=== PATIENT | female | born 1995 | race Caucasian/White ===

== ENCOUNTER 2017-07-18 10:27 | Emergency (ER) | payer OTHER ==
[2017-07-18] MEDS ORDERED: Sodium Chloride 0.9% 10 ML Syringe FLUSH PRN (10:38)
[2017-07-18] MEDS ORDERED: Sodium Chloride 0.9% 2.5 ML Syringe FLUSH PRN (10:38)
--- NOTE | 2017-07-18 10:54 | EDM.PDOC ---
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 It became heavy today with cramping. Review of systems: As per history of present illness and below otherwise all systems reviewed and negative. Past medical history: As per history of present illness and as reviewed below otherwise noncontributory. Surgical history: As per history of present illness and as reviewed below otherwise noncontributory. Social history: No reported history of drug or alcohol abuse. Family history: As per history of present illness and as reviewed below otherwise noncontributory. Physical exam: General: Well developed, well nourished in NAD HEENT: Atraumatic, normocephalic, pupils reactive, negative for conjunctival pallor or scleral icterus, mucous membranes moist, throat clear, neck supple, nontender, trachea midline. Lungs: Clear to auscultation, breath sounds equal bilaterally, chest nontender. Heart: S1S2, regular, negative for clicks, rubs, or JVD. Abdomen: Soft, nondistended, nontender. Negative for masses or hepatosplenomegaly. Negative for costovertebral tenderness. Pelvis: Large amount of blood and clots in the vaginal vault there is no tissue present osseous closed Genitourinary: Deferred. Rectal: Deferred. Extremities: Atraumatic, negative for cords or calf pain. Neurovascular unremarkable. Neuro: Awake, alert, oriented. Cranial nerves II through XII unremarkable. Cerebellum unremarkable. Motor and sensory unremarkable throughout. Exam nonfocal. Diagnostics: []Ultrasound shows blood clot there is no fetus noted, UA positive for white cells, epithelial cells negative for nitrites and leukocytes, Rh- Therapeutics: []IV fluids morphine and Zofran given for pain, rhogam given Impression: []Spontaneous Plan: []Follow-up PATTERN FILER for urine culture results, increase fluids return if symptoms worsen or change Tylenol Motrin and warm packs Definitive disposition and diagnosis as appropriate pending reevaluation and review of above. vaginal cramping Pain Score (Numeric/FACES): 3 - Related Data Allergies Allergy/AdvReac Type Severity Reaction Status Date / Time No Known Allergies Allergy Verified 07/18/17 12:03 Home Meds: Home Meds . [No Known Home Meds] 07/18/17 [History] ED ROS GENERAL - Review of Systems Review Of Systems: See Below (See history of present illness) ED EXAM - Physical Exam Exam: See Below (See history of present illness) Course - Vital Signs Last Recorded V/S: Last Vital Signs Temp 97.5 F 07/18/17 11:05 Pulse 78 07/18/17 12:15 Resp 18 07/18/17 12:15 BP 102/61 07/18/17 12:15 Pulse Ox 99 07/18/17 12:15 - Orders/Labs/Meds Orders: Active Orders 24 hr Category Date Time Status RH IMMUNE GLOBULIN [BBK] Stat Lab 07/18/17 10:57 Results RHIG WORKUP, [BBK] Stat Lab 07/18/17 10:57 Results Sodium Chloride 0.9% [Normal Saline] 1,000 ml Med 07/18/17 12:02 Active IV STAT Sodium Chloride 0.9% [Saline Flush] Med 07/18/17 10:38 Active 10 ml FLUSH ASDIRECTED PRN Sodium Chloride 0.9% [Saline Flush] Med 07/18/17 10:38 Active 2.5 ml FLUSH ASDIRECTED PRN Saline Lock Insert [OM.PC] Stat Oth 07/18/17 10:37 Ordered Medication Orders Sodium Chloride (Normal Saline) 1,000 mls @ 999 mls/hr IV STAT ONE Stop: 07/18/17 13:02 Last Admin: 07/18/17 12:03 Dose: 999 mls/hr Sodium Chloride (Saline Flush) 10 ml FLUSH ASDIRECTED PRN PRN Reason: Keep Vein Open Last Admin: 07/18/17 12:16 Dose: 10 ml Sodium Chloride (Saline Flush) 2.5 ml FLUSH ASDIRECTED PRN PRN Reason: Keep Vein Open Last Admin: 07/18/17 12:16 Dose: 2.5 ml Labs: Laboratory Tests 07/18/17 07/18/17 07/18/17 Range/Units 10:57 10:57 10:57 WBC 11.58 H (4.0-11.0) K/uL RBC 4.57 (4.30-5.90) M/uL Hgb 14.0 (12.0-16.0) g/dL Hct 40.4 (36.0-46.0) % MCV 88.4 (80.0-98.0) fL MCH 30.6 (27.0-32.0) pg MCHC 34.7 (31.0-37.0) g/dL RDW Std Deviation 43.5 (28.0-62.0) fl RDW Coeff of Janice 14 (11.0-15.0) % Plt Count 243 (150-400) K/uL MPV 10.10 (7.40-12.00) fL Neut % (Auto) 83.0 H (48.0-80.0) % Lymph % (Auto) 12.4 L (16.0-40.0) % Fergus % (Auto) 4.2 (0.0-15.0) % Eos % (Auto) 0.3 (0.0-7.0) % Baso % (Auto) 0.1 (0.0-1.5) % Neut # (Auto) 9.6 H (1.4-5.7) K/uL Lymph # (Auto) 1.4 (0.6-2.4) K/uL Fergus # (Auto) 0.5 (0.0-0.8) K/uL Eos # (Auto) 0.0 (0.0-0.7) K/uL Baso # (Auto) 0.0 (0.0-0.1) K/uL Nucleated RBC % 0.0 /100WBC Nucleated RBCs # 0 K/uL HCG, Quant 2829.4 mIU/mL Urine Color Urine Appearance Urine pH (5.0-8.0) Ur Specific Kintyre (1.001-1.035) Urine Protein (NEGATIVE) mg/dL Urine Glucose (UA) (NEGATIVE) mg/dL Urine Ketones (NEGATIVE) mg/dL Urine Occult Blood (NEGATIVE) Urine Nitrite (NEGATIVE) Urine Bilirubin (NEGATIVE) Urine Urobilinogen (<2.0) EU/dL Ur Leukocyte Esterase (NEGATIVE) Urine RBC (0-2/HPF) Urine WBC (0-5/HPF) Ur Epithelial Cells (NONE-FEW) Urine Bacteria (NEGATIVE) Urine Mucus (NONE-MOD) Urine Opiates Screen (NEGATIVE) Ur Oxycodone Screen (NEGATIVE) Urine Methadone Screen (NEGATIVE) Ur Barbiturates Screen (NEGATIVE) Ur Phencyclidine Scrn (NEGATIVE) Ur Amphetamine Screen (NEGATIVE) U Methamphetamines Scrn (NEGATIVE) U Benzodiazepines Scrn (NEGATIVE) U Cocaine Metab Screen (NEGATIVE) U Marijuana (THC) Screen (NEGATIVE) Blood Type O NEGATIVE Antibody Screen NEGATIVE Rhogam Indicated YES 07/18/17 07/18/17 Range/Units 11:59 11:59 WBC (4.0-11.0) K/uL RBC (4.30-5.90) M/uL Hgb (12.0-16.0) g/dL Hct (36.0-46.0) % MCV (80.0-98.0) fL MCH (27.0-32.0) pg MCHC (31.0-37.0) g/dL RDW Std Deviation (28.0-62.0) fl RDW Coeff of Janice (11.0-15.0) % Plt Count (150-400) K/uL MPV (7.40-12.00) fL Neut % (Auto) (48.0-80.0) % Lymph % (Auto) (16.0-40.0) % Fergus % (Auto) (0.0-15.0) % Eos % (Auto) (0.0-7.0) % Baso % (Auto) (0.0-1.5) % Neut # (Auto) (1.4-5.7) K/uL Lymph # (Auto) (0.6-2.4) K/uL Fergus # (Auto) (0.0-0.8) K/uL Eos # (Auto) (0.0-0.7) K/uL Baso # (Auto) (0.0-0.1) K/uL Nucleated RBC % /100WBC Nucleated RBCs # K/uL HCG, Quant mIU/mL Urine Color YELLOW Urine Appearance CLEAR Urine pH 6.0 (5.0-8.0) Ur Specific Kin[place] >= 1.030 (1.001-1.035) Urine Protein 30 (NEGATIVE) mg/dL Urine Glucose (UA) NEGATIVE (NEGATIVE) mg/dL Urine Ketones TRACE H (NEGATIVE) mg/dL Urine Occult Blood SMALL H (NEGATIVE) Urine Nitrite NEGATIVE (NEGATIVE) Urine Bilirubin SMALL H (NEGATIVE) Urine Urobilinogen 0.2 (<2.0) EU/dL Ur Leukocyte Esterase NEGATIVE (NEGATIVE) Urine RBC 0-2 (0-2/HPF) Urine WBC 25-30 (0-5/HPF) Ur Epithelial Cells MODERATE (NONE-FEW) Urine Bacteria 1+ H (NEGATIVE) Urine Mucus HEAVY (NONE-MOD) Urine Opiates Screen NEGATIVE (NEGATIVE) Ur Oxycodone Screen NEGATIVE (NEGATIVE) Urine Methadone Screen NEGATIVE (NEGATIVE) Ur Barbiturates Screen NEGATIVE (NEGATIVE) Ur Phencyclidine Scrn NEGATIVE (NEGATIVE) Ur Amphetamine Screen NEGATIVE (NEGATIVE) U Methamphetamines Scrn NEGATIVE (NEGATIVE) U Benzodiazepines Scrn NEGATIVE (NEGATIVE) U Cocaine Metab Screen NEGATIVE (NEGATIVE) U Marijuana (THC) Screen NEGATIVE (NEGATIVE) Blood Type Antibody Screen Rhogam Indicated Meds: Medications Generic Name Dose Route Start Last Admin Trade Name Freq PRN Reason Stop Dose Admin Sodium Chloride 1,000 mls @ 999 mls/hr 07/18/17 12:02 07/18/17 12:03 Normal Saline IV 07/18/17 13:02 999 mls/hr STAT ONE Administration Sodium Chloride 10 ml 07/18/17 10:38 07/18/17 12:16 Saline Flush FLUSH 10 ml ASDIRECTED PRN Administration Keep Vein Open Sodium Chloride 2.5 ml 07/18/17 10:38 07/18/17 12:16 Saline Flush FLUSH 2.5 ml ASDIRECTED PRN Administration Keep Vein Open Discontinued Medications Generic Name Dose Route Start Last Admin Trade Name Freq PRN Reason Stop Dose Admin Morphine Sulfate 2 mg 07/18/17 11:58 07/18/17 12:16 Morphine IVPUSH 07/18/17 11:59 2 mg ONETIME ONE Administration Ondansetron HCl 4 mg 07/18/17 11:58 07/18/17 12:16 Zofran IVPUSH 07/18/17 11:59 4 mg ONETIME ONE Administration Departure - Departure Time of Disposition: 12:47 Disposition: Home, Self-Care 01 Condition: Good Clinical Impression: Spontaneous - Discharge Information Referrals: PCP,None [Primary Care Provider] - Benedicto Bettencourt MD [Physician] - (Call for next available appointment) Forms: ED Department Discharge Additional Instructions: The following information is given to patients seen in the emergency department who are being discharged to home. This information is to outline your options for follow-up care. We provide all patients seen in our emergency department with a follow-up referral. The need for follow-up, as well as the timing and circumstances, are variable depending upon the specifics of your emergency department visit. If you don't have a primary care physician on staff, we will provide you with a referral. We always advise you to contact your personal physician following an emergency department visit to inform them of the circumstance of the visit and for follow-up with them and/or the need for any referrals to a consulting specialist. The emergency department will also refer you to a specialist when appropriate. This referral assures that you have the opportunity for follow-up care with a specialist. All of these measure are taken in an effort to provide you with optimal care, which includes your follow-up. Under all circumstances we always encourage you to contact your private physician who remains a resource for coordinating your care. When calling for follow-up care, please make the office aware that this follow-up is from your recent emergency room visit. If for any reason you are refused follow-up, please contact the [facility] Emergency Department at and asked to speak to the emergency department charge nurse. Follow-up [facility] for urine culture results. Return to ER if any bleeding recurs or worsens - My Orders Last 24 Hours: My Active Orders 07/18/17 10:37 Saline Lock Insert [OM.PC] Stat 07/18/17 10:38 Sodium Chloride 0.9% [Saline Flush] 10 ml FLUSH ASDIRECTED PRN Sodium Chloride 0.9% [Saline Flush] 2.5 ml FLUSH ASDIRECTED PRN 07/18/17 10:57 RH IMMUNE GLOBULIN [BBK] Stat RHIG WORKUP, [BBK] Stat 07/18/17 12:02 Sodium Chloride 0.9% [Normal Saline] 1,000 ml IV STAT - Assessment/Plan Last 24 Hours: My Active Orders 07/18/17 10:37 Saline Lock Insert [OM.PC] Stat 07/18/17 10:38 Sodium Chloride 0.9% [Saline Flush] 10 ml FLUSH ASDIRECTED PRN Sodium Chloride 0.9% [Saline Flush] 2.5 ml FLUSH ASDIRECTED PRN 07/18/17 10:57 RH IMMUNE GLOBULIN [BBK] Stat RHIG WORKUP, [BBK] Stat 07/18/17 12:02 Sodium Chloride 0.9% [Normal Saline] 1,000 ml IV STAT
--- NOTE | 2017-07-18 11:37 | US ---
EXAMINATION: Transvaginal pelvic ultrasound HISTORY: Bleeding COMPARISON: None TECHNIQUE: Grayscale, color Doppler imaging obtained. FINDINGS: The uterus is normal in size, contour and echogenicity without a focal mass. The endometria l stripe is thickened measuring up to 2.4 cm. The endometrium demonstrates heterogeneous contents wit hout internal color Doppler flow. No gestational sac identified. Both the left and right ovaries are normal in size, contour, and echogenicity demonstrating normal co lonnie Doppler flow. Small follicles noted. No adnexal masses. IMPRESSION: 1. Heterogeneous thickened endometrial stripe without a visualized gestational sac. This likely repre sents a spontaneous in progress with hemorrhagic contents.
[2017-07-18] MEDS ORDERED: Ondansetron 4 MG/2 ML SDV IVPUSH ONE (11:58)
[2017-07-18] MEDS ORDERED: Morphine 2 MG/ML Syringe IVPUSH ONE ×2 (11:58→14:16)
[2017-07-18] MEDS ORDERED: Sodium Chloride 0.9% 1,000 ML IV ONE ×2 (12:02→15:03)
[2017-07-18] MEDS ORDERED: Methylergonovine 0.2 MG/1 ML Amp IM ONE (13:42)
[2017-07-18] MEDS ORDERED: Methylergonovine 0.2 MG Tab PO ONE (15:37)
--- NOTE | 2017-07-19 11:10 | CONS ---
DATE OF CONSULTATION: DATE OF : 1995 PRIMARY CARE PHYSICIAN: None PCP This is an ER Consultation. Ms Gonzalez is 21 years old. She is para 1-0-0-1. She presented to the emergency room complaining of vaginal bleeding. The patient stated that she passed a large clot and she thinks she is miscarried at home. The patient was evaluated by the emergency room, she had an ultrasound, which is out of use, which showed empty uterus, and she was examined by the emergency room doctors and her lab work essentially is normal. Her Rh is negative. I was consulted to evaluate the bleeding. When I examined the patient, did a speculum examination, there is blood clot in the vagina and removed without any problem. The cervical os is opened. I used the ring forceps to sweep the endometrial cavity. A small amount of products of conception is removed this way and the bleeding almost completely stopped after that. Once I ascertained that the uterus was empty and there was no further products of conception in the uterus and the bleeding was stopped, I instructed the nurse to give the patient Methergine subcu and then to give her a RhoGAM injection since she is a Rh negative. We again observed her in the emergency room for an hour. If her bleeding stops, she can go home and she could be followed in the office as needed. ROSE MARIE / CAROLINE /[id number]
== END 2017-07-18 17:00 | disposition home or self-care (01) ==
LOC: MW.ED 10:27
DX: O03.9 Complete or unspecified spontaneous abortion without complication (principal)
CPT/HCPCS: 36415; 76817; 80305; 81001; 84702; 85025; 86850; 86900; 86901; 87086; 96361; 96372; 96374; 96375; 96376; 99284; A9270; J2210; J2270; J2405; J2790; J7040